=== PATIENT | female | born 1975 | race Hispanic/Latino ===

== ENCOUNTER 2017-09-01 23:04 | Emergency (ER) | payer SELFPAY ==
[2017-09-01 23:04] VITALS: BMI 29.4
[2017-09-01 23:36] VITALS: BP 124/83; RESP 20
--- NOTE | 2017-09-02 01:12 | C.PDOC ---
History Of Present Illness 41 year old female presents to the ED for evaluation of left-sided neck and shoulder pain which gradually developed over the past 10 days after she sustained a mechanical fall. Patient states her pain is localized and worsens with movement. She denies head injury, LOC, syncope, headache, dizziness, visual changes, focal deficits, CP< SOB, dyspnea, diaphoresis, palpitation, abd. pain, N/V, denies obvious deformity or weakness to B/L UEs and LEs. Time Seen by Provider: 09/01/17 23:21 Chief Complaint (Nursing): Upper Extremity Problem/Injury History Per: Patient History/Exam Limitations: no limitations Onset/Duration Of Symptoms: Gradual (10) Current Symptoms Are (Timing): Still Present Quality: "Pain" Exacerbating Factor(s): Movement Additional History Per: Patient Past Medical History Reviewed: Historical Data, Nursing Documentation, Vital Signs Vital Signs: Last Vital Signs Temp 98 F 09/02/17 01:45 Pulse 82 09/02/17 01:45 Resp 20 09/02/17 01:45 BP 124/83 09/01/17 23:33 Pulse Ox 97 09/07/17 21:39 - Medical History PMH: COPD Surgical History: Appendectomy Family History: States: Unknown Family Hx - Social History Hx Tobacco Use: No Hx Alcohol Use: No Hx Substance Use: No - Immunization History Hx Tetanus Toxoid Vaccination: No Hx Influenza Vaccination: No Hx Pneumococcal Vaccination: No Review Of Systems Musculoskeletal: Positive for: Neck Pain (left-sided), Shoulder Pain (left-sided ) Neurological: Negative for: Weakness, Numbness, Other (head injury, LOC, syncope ) Physical Exam - Physical Exam Appears: Well, Non-toxic, No Acute Distress Skin: Normal Color, Warm, Dry, No Rash Head: Normacephalic Eye(s): bilateral: PERRL Nose: No Flaring, No Discharge Oral Mucosa: Moist, No Drooling Throat: No Erythema, No Drooling Neck: Trachea Midline, No Midline Cervical Tenderness, No Step Off Deformity, Supple, Other (mod tenderness over superior aspect left shoulder extends down to Let periscapular area with mod muscle spasm. no palpable deformity, no skin changes.) Cardiovascular: Rhythm Regular Respiratory: Normal Breath Sounds Gastrointestinal/Abdominal: Normal Exam Back: Normal Inspection Extremity: Normal ROM ED Course And Treatment O2 Sat by Pulse Oximetry: 97 (on RA) Pulse Ox Interpretation: Normal - Other Rad C-SPINE X-Ray: Interpreted by Me, Viewed By Me Interpretation: (-) ACUTE FX OR SUBLUX SHOULDER LEFT X-Ray: Interpreted by Me, Viewed By Me Interpretation: (-) ACUTE FX OR DISLOCATION Progress Note: Cervical Spine AP/LAT XR and Left shoulder XR ordered and reviewed. Motrin PO and Valium PO administered. On reassessment, patient is resting comfortably, showing no signs of distress and is stable for discharge. Patient is advised to follow up with orthopedic care within a timely manner for further evaluation. Disposition Counseled Patient/Family Regarding: Studies Performed, Diagnosis, Need For Followup, Rx Given - Disposition Referrals: Elsy Patricio MD [Staff Provider] - Giovanni Nayak MD [Staff Provider] - Disposition: HOME/ ROUTINE Disposition Time: 01:02 Condition: STABLE Additional Instructions: TAKE MEDICATION PRESCRIBED FOLLOW UP WITH PMD, ORTHOPEDIST IN 2-3 DAYS FOR RE-EVALUATION AND FURTHER TREATMENT. RETURN TO ED IF ANY WORSENING OR NEW CHANGES. 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 - Scribe Statement The provider has reviewed the documentation as recorded by the Scribe (Mandy Mckinley) All medical record entries made by the Scribe were at my direction and personally dictated by me. I have reviewed the chart and agree that the record accurately reflects my personal performance of the history, physical exam, medical decision making, and the department course for this patient. I have also personally directed, reviewed, and agree with the discharge instructions and disposition.
[2017-09-02 01:46] VITALS: PULSE 82; TEMP 98
--- NOTE | 2017-09-02 08:35 | RAD ---
PROCEDURE: Cervical Spine Radiographs. HISTORY: Pain. COMPARISON: None. FINDINGS: BONES: Cervical spine straightening to mild reversal. No fracture. Dens Intact. DISC SPACES: Normal. SOFT TISSUES: Normal. No prevertebral soft tissue swelling. OTHER FINDINGS: Developmental variation C7 small cervical rib contours IMPRESSION: No fracture or subluxation
--- NOTE | 2017-09-02 08:37 | RAD ---
PROCEDURE: Radiographs of the Left Shoulder HISTORY: pain COMPARISON: No prior. FINDINGS: BONES: Normal. No fracture. JOINTS: Normal. Glenohumeral and acromioclavicular joints preserved. No osteoarthritis. SOFT TISSUES: Normal. OTHER FINDINGS: Developmental variation C7 small cervical rib contours IMPRESSION: Normal radiographs of the left shoulder.
[2017-09-07 21:31] VITALS: O2SAT 97
== END 2017-09-02 01:44 | disposition home or self-care (01) ==
LOC: C.ER 23:04
DX: M54.12 Radiculopathy, cervical region (principal); S16.1XXA Strain of muscle, fascia and tendon at neck level, initial encounter; W01.0XXA Fall on same level from slipping, tripping and stumbling without subsequent striking against object, initial encounter; Y92.009 Unspecified place in unspecified non-institutional (private) residence as the place of occurrence of the external cause

== ENCOUNTER 2017-12-30 01:50 | Emergency (ER) | payer SELFPAY ==
[2017-12-30 01:50] VITALS: BMI 29.4
[2017-12-30 02:03] VITALS: RESP 20
--- NOTE | 2017-12-30 03:00 | C.PDOC ---
History Of Present Illness 42 yo female come in for evaluation of " oral sores and sore throat gradually developed for past few days after had unprotected sex". Pt also reports, mild discomfort on urination. Otherwise, denies fever, chills, headache, dizziness, drooling, dysphagia, dyspnea, SOB, wheezing, abd. pain, V/D, vaginal discharges or irritation, hematuria. Ambulate to Ed for evaluation, not in any apparent distress. Time Seen by Provider: 12/30/17 01:54 Chief Complaint (Nursing): ENT Problem History Per: Patient Past Medical History Reviewed: Historical Data, Nursing Documentation, Vital Signs Vital Signs: Last Vital Signs Temp 98.8 F 12/30/17 04:17 Pulse 89 12/30/17 04:17 Resp 20 12/30/17 04:17 BP 120/77 12/30/17 04:17 Pulse Ox 99 12/30/17 04:17 - Medical History PMH: COPD Surgical History: Appendectomy Family History: States: Unknown Family Hx - Social History Hx Tobacco Use: No Hx Alcohol Use: No Hx Substance Use: No - Immunization History Hx Tetanus Toxoid Vaccination: No Hx Influenza Vaccination: No Hx Pneumococcal Vaccination: No Review Of Systems Except As Marked, All Systems Reviewed And Found Negative. Constitutional: Negative for: Fever, Chills ENT: Positive for: Nose Congestion, Throat Pain, Throat Swelling. Negative for : Ear Discharge, Nose Discharge Cardiovascular: Negative for: Chest Pain Respiratory: Negative for: Cough, Shortness of Breath, Wheezing Gastrointestinal: Negative for: Nausea, Vomiting, Abdominal Pain, Diarrhea Genitourinary: Positive for: Dysuria. Negative for: Frequency, Vaginal Discharge, Vaginal Bleeding Musculoskeletal: Negative for: Back Pain Skin: Negative for: Rash Neurological: Negative for: Weakness, Numbness Physical Exam - Physical Exam Appears: Well, Non-toxic, No Acute Distress Skin: Normal Color, Warm, Dry, No Rash Head: Normacephalic Eye(s): bilateral: PERRL Ear(s): Bilateral: Normal Nose: No Flaring, No Discharge Oral Mucosa: Moist, No Drooling, No Trismus Tongue: No Lesions Lips: No Lesions Gingiva: Normal Appearing Throat: Erythema (mild B/L), No Drooling Neck: Trachea Midline, Supple Cardiovascular: Rhythm Regular Respiratory: No Decreased Breath Sounds, No Accessory Muscle Use, No Stridor, No Wheezing Gastrointestinal/Abdominal: Soft, Tenderness (mild suprapubic), No Distention, No Guarding, No Rebound Back: No CVA Tenderness Extremity: Normal ROM, No Deformity, No Swelling Neurological/Psych: Oriented x3, Normal Speech ED Course And Treatment - Laboratory Results Urine POC: Negative O2 Sat by Pulse Oximetry: 100 Pulse Ox Interpretation: Normal Progress Note: On re-evlauation, pt is afebrile, hemodynamicaly stable. NOn- toxic. Tolerate Po well in ED. PusleOx 100% RA. ENT: mild pharyngeal erythema , no lesions, uvula midline, no edema. Neck: Supple, (-) meningeal sign, (-) JVD, (-) carotid bruits B/L. Lungs: CTA B/L, BS equal B/L. CVS: (+)S1S2, reg. Abd: benign, (-) guaridng, (-) rebound. back: (-) CVA tenderness. Neurologicaly intact. UA results review (-). Has clinical findings c/w pharyngitis, dysuria, r/o STD. result review with pt. Ref. to Follow up with PMD, SUPPLY CHAIN DEVELOPMENT MANAGER, ENT in 2-3 days for re-eval. return to Ed if any worsening or new changes. Disposition Counseled Patient/Family Regarding: Studies Performed, Diagnosis, Need For Followup, Rx Given - Disposition Referrals: Elsy Patricio MD [Staff Provider] - Disposition: HOME/ ROUTINE Disposition Time: 03:00 Condition: STABLE Additional Instructions: Take medication as prescribed Follow up with PMD, ENT, SUPPLY CHAIN DEVELOPMENT MANAGER in 2-3 days for re-evaluation. return to ED if any worsening or new changes. Prescriptions: Ciprofloxacin [Cipro] 1 tab PO BID #14 tab Instructions: Sore Throat, Adult (DC), Dysuria, Adult (DC) Forms: [employer] (Nauruan) - Clinical Impression Clinical Impression: Pharyngitis, Dysuria
[2017-12-30 03:37] LABS: SQUAMOUS EPITHIAL 1 /hpf (0-5); URINE BILIRUBIN NEGATIVE (NEGATIVE); URINE BLOOD NEGATIVE (NEGATIVE); URINE CLARITY Clear (Clear); URINE COLOR Yellow (YELLOW); URINE GLUCOSE (UA) NORMAL (Normal); URINE LEUKOCYTE ESTERASE NEG Leu/uL (Negative); URINE PROTEIN NEGATIVE (NEGATIVE); URINE UROBILINOGEN NORMAL mg/dL (0.2-1.0)
[2017-12-30 04:18] VITALS: BP 120/77; PULSE 89; TEMP 98.8
[2017-12-30 04:40] VITALS: O2SAT 100
== END 2017-12-30 04:18 | disposition home or self-care (01) ==
LOC: C.ER 01:50
DX: J02.9 Acute pharyngitis, unspecified (principal); R30.0 Dysuria; F17.210 Nicotine dependence, cigarettes, uncomplicated

== ENCOUNTER 2018-04-28 17:00 | Emergency (ER) | payer SELFPAY ==
[2018-04-28 17:01] VITALS: BMI 29.4
[2018-04-28 17:26] VITALS: RESP 18
--- NOTE | 2018-04-28 17:31 | C.PDOC ---
History Of Present Illness 42 y/o female presents to the ER complaining of tingling to her left arm, right hand, and left big toe which has been present for the past 2 to 3 days. Patient states that the tingling increased today prompting her visit to the ER. Denies having headache, changes in vision, weakness or changes in speech. No other FND. No trauma or falls. Time Seen by Provider: 04/28/18 17:30 Chief Complaint (Nursing): Weakness/Neurological Deficit History Per: Patient History/Exam Limitations: no limitations Onset/Duration Of Symptoms: Days Current Symptoms Are (Timing): Still Present Severity: Moderate Past Medical History Reviewed: Historical Data, Nursing Documentation, Vital Signs Vital Signs: Last Vital Signs Temp 98.5 F 04/28/18 20:42 Pulse 67 04/28/18 22:02 Resp 18 04/28/18 22:02 BP 119/74 04/28/18 22:02 Pulse Ox 100 04/28/18 22:02 - Medical History PMH: COPD Surgical History: Appendectomy Family History: States: No Known Family Hx - Social History Hx Tobacco Use: No Hx Alcohol Use: No Hx Substance Use: No - Immunization History Hx Tetanus Toxoid Vaccination: No Hx Influenza Vaccination: No Hx Pneumococcal Vaccination: No Review Of Systems Except As Marked, All Systems Reviewed And Found Negative. Constitutional: Negative for: Fever, Chills Neurological: Positive for: Other (tingling to left arm, right hand, and left big toe). Negative for: Weakness Physical Exam - Physical Exam Appears: Non-toxic, No Acute Distress Skin: Normal Color, Warm, Dry Head: Atraumatic, Normacephalic Eye(s): bilateral: Normal Inspection Nose: Normal Oral Mucosa: Moist Neck: Supple Chest: Symmetrical Cardiovascular: Rhythm Regular Respiratory: Normal Breath Sounds, No Rales, No Rhonchi, No Wheezing Gastrointestinal/Abdominal: Normal Exam, Soft, No Tenderness, No Guarding, No Rebound Extremity: Normal ROM, No Tenderness Neurological/Psych: Oriented x3, Normal Speech, Normal Cognition, Normal Cranial Nerves, No Cerebellar Signs, Normal Motor, Normal Sensation, Normal Reflexes Gait: Steady Other Neurological Findings: No Facial Palsy, No Forehead Sparing Extremity: Right: No Drift, Left: No Drift, Upper: No Drift, Lower: No Drift ED Course And Treatment - Laboratory Results Result Diagrams: 04/28/18 19:22 09/06/18 19:22 O2 Sat by Pulse Oximetry: 99 (RA) Pulse Ox Interpretation: Normal Medical Decision Making Medical Decision Making: Well appearing 42 yr old female p/w parathesias in non-neurological stroke like pattern (b/l hands without cape distribution and big toe) Normal exam. No appreciable numbness on my exam. No trauma or pain. Plan: --Labs --UA --CT- Head --POC Test Updates: Ct unremarkable On re-evaluation, patient states that her symptoms have resolved and she is ready for discharge. Given patient has non neurological associated strije pattern, patient will be discharged and instructed to follow up as an outpatient with neuro. Disposition - Disposition Referrals: Hailey Viera MD [Staff Provider] - [facility] [Outside] Disposition: HOME/ ROUTINE Disposition Time: 21:00 Condition: GOOD Additional Instructions: PHOENIX VÁSQUEZ, thank you for letting us take care of you today. Your provider was Murphy Rtoh and you were treated for NUMBNESS IN HANDS/FACE. The emergency medical care you received today was directed at your acute symptoms. If you were prescribed any medication, please fill it and take as directed. It may take several days for your symptoms to resolve. Return to the Emergency Department if your symptoms worsen, do not improve, or if you have any other problems. Please contact your doctor or call one of the physicians/clinics you have been referred to that are listed on the Patient Visit Information form that is included in your discharge packet. Bring any paperwork you were given at discharge with you along with any medications you are taking to your follow up visit. Our treatment cannot replace ongoing medical care by a primary care provider outside of the emergency department. Thank you for allowing the [facility] team to be part of your care today. If you had an X-Ray or CT scan: A Radiologist will review the ED reading if any change in treatment is needed we will contact you. If you had a blood, urine, or wound culture: It will take several days for the results, if any change in treatment is needed we will contact you. If you had an STI test: It will take 48 hours for the results. Please call after 1 week if you have not heard back. Instructions: Paresthesias (DC) Forms: [employer] (Chinese) - Clinical Impression Clinical Impression: Hand paresthesia - Scribe Statement The provider has reviewed the documentation as recorded by the Rikiibe Brook Mcgee Provider Attestation: All medical record entries made by the Scribe were at my direction and personally dictated by me. I have reviewed the chart and agree that the record accurately reflects my personal performance of the history, physical exam, medical decision making, and the department course for this patient. I have also personally directed, reviewed, and agree with the discharge instructions and disposition.
[2018-04-28 18:17] LABS: SQUAMOUS EPITHIAL 51 /hpf (0-5); URINE BACTERIA FEW (<OCC); URINE BILIRUBIN NEGATIVE (NEGATIVE); URINE BLOOD NEGATIVE (NEGATIVE); URINE CLARITY Hazy (Clear); URINE GLUCOSE (UA) NORMAL (Normal); URINE LEUKOCYTE ESTERASE TRACE Leu/uL (Negative); URINE PROTEIN 1+ mg/dL (NEGATIVE)
[2018-04-28 18:18] LABS: URINE COLOR YELLOW (YELLOW)
[2018-04-28 18:50] LABS: BARBITURATES, UR NEGATIVE (NEGATIVE); BENZODIAZEPINES, UR NEGATIVE (NEGATIVE); OPIATES, UR NEGATIVE (NEGATIVE); PHENCYCLIDINE, UR NEGATIVE (NEGATIVE)
[2018-04-28 19:24] LABS: HEMOGLOBIN 15.1 g/dL (11.0-16.0); MEAN CELL VOLUME 88.7 fL (81.0-99.0); MEAN CORPUSCULAR HEMOGLOBIN 29.5 pg (27.0-31.0); MEAN CORPUSCULAR HGB CONC 33.2 g/dL (33.0-37.0); MEAN PLATELET VOLUME 10.1 fL (7.2-11.7); RBC 5.14 Mil/uL (3.80-5.20); RED CELL DISTRIBUTION WIDTH 13.2 % (11.5-14.5); WHITE BLOOD COUNT 4.5 K/uL (4.8-10.8)
[2018-04-28 19:37] LABS: VENOUS BLOOD GAS BASE EXCESS -0.5 mmol/L (0.0-2.0); VENOUS BLOOD GAS PCO2 39 mmHg (40-60); VENOUS BLOOD GAS PO2 52 mm/Hg (30-55)
[2018-04-28 19:38] LABS: ALB/GLOB RATIO 1.3 (1.0-2.1); ALBUMIN 4.3 g/dL (3.5-5.0); ALT/SGPT 30 U/L (9-52); AST/SGOT 14 U/L (14-36); BLOOD UREA NITROGEN 16 mg/dL (7-17); CALCIUM 9.3 mg/dl (8.6-10.4); GFR NON-AFRICAN AMERICAN > 60
[2018-04-28 20:42] VITALS: TEMP 98.5
[2018-04-28 22:08] VITALS: BP 119/74; PULSE 67
[2018-04-29 01:10] VITALS: O2SAT 99
--- NOTE | 2018-04-29 07:15 | CT ---
Date of service: 04/28/2018 PROCEDURE: CT HEAD WITHOUT CONTRAST. HISTORY: parathesias COMPARISON: None available. TECHNIQUE: Axial computed tomography images were obtained through the head/brain without intravenous contrast. Radiation dose: Total exam DLP = 1000 mGy-cm. This CT exam was performed using one or more of the following dose reduction techniques: Automated exposure control, adjustment of the mA and/or kV according to patient size, and/or use of iterative reconstruction technique. FINDINGS: HEMORRHAGE: No intracranial hemorrhage. BRAIN: No mass effect or edema. No atrophy or chronic microvascular ischemic changes. VENTRICLES: Unremarkable. No hydrocephalus. CALVARIUM: Unremarkable. PARANASAL SINUSES: Ethmoid sinus mucosal thickening. MASTOID AIR CELLS: Unremarkable as visualized. No inflammatory changes. OTHER FINDINGS: None. IMPRESSION: Ethmoid sinus mucosal thickening. If symptoms persists, consider correlation with MRI. These findings were preliminarily reported at 7:52 p.m. on 04/28/[address] Chhaya Keys from [facility].
--- NOTE | 2018-04-29 11:04 | CARD ---
APPROVED REPORT Date of service: 04/28/2018 EKG Measurement Heart [id number] <Conclusion> Normal sinus rhythm Normal ECG
== END 2018-04-28 22:09 | disposition home or self-care (01) ==
LOC: C.ER 17:00
DX: R20.2 Paresthesia of skin (principal)
CPT/HCPCS: 70450; 80053; 81001; 82803; 83735; 84443; 85027; 87086; 93005; 99285; G0480

== ENCOUNTER 2018-11-01 12:22 | Inpatient (IN) | payer SELFPAY ==
[2018-11-01 12:22] VITALS: BMI 29.4
--- NOTE | 2018-11-01 14:12 | C.PDOC ---
History Of Present Illness 42 year old female, whose past medical history includes COPD and cardiac surgery (as a ), presents to the ED for evaluation of facial pain, ear pain, cough, left back pain and throat pain which has been ongoing for 1.5 weeks. Patient reports possible subjective fever. She also reports intermittent left anterior chest wall pain, which lasted all day yesterday and radiated into her left arm. She denies chest pain currently, but has left lung pain . Patient complains of lung pain while pointing to her left back, which she states has prompted this visit. Patient states she has not been using nebulizer, because she does not have one at home. She has not been evaluated by her PMD for these symptoms. Patient denies nausea, vomiting, dizziness. Time Seen by Provider: 11/01/18 13:26 Chief Complaint (Nursing): Cough, Cold, Congestion History Per: Patient History/Exam Limitations: no limitations Onset/Duration Of Symptoms: Days Current Symptoms Are (Timing): Still Present Additional History Per: Patient Past Medical History Reviewed: Historical Data, Nursing Documentation, Vital Signs Vital Signs: Last Vital Signs Temp 98.7 F 11/01/18 12:37 Pulse 98 H 11/01/18 12:37 Resp 18 11/01/18 12:37 BP 117/83 11/01/18 12:37 Pulse Ox 100 11/01/18 12:37 - Medical History PMH: COPD Surgical History: Appendectomy Family History: States: Unknown Family Hx - Social History Hx Tobacco Use: Yes Hx Alcohol Use: Yes Hx Substance Use: No - Immunization History Hx Tetanus Toxoid Vaccination: No Hx Influenza Vaccination: No Hx Pneumococcal Vaccination: No Review Of Systems Constitutional: Positive for: Fever (subjective ) ENT: Positive for: Ear Pain, Mouth Pain, Other (facial pain ) Cardiovascular: Positive for: Chest Pain (left, anterior ) Respiratory: Positive for: Cough Gastrointestinal: Negative for: Nausea, Vomiting Neurological: Negative for: Dizziness Physical Exam - Physical Exam Appears: Non-toxic, No Acute Distress Skin: Normal Color, Warm, Dry, Other (diagonal scar on left back ) Head: Atraumatic, Normacephalic Eye(s): bilateral: Normal Inspection Oral Mucosa: Moist Gingiva: Other (lone vesicle to left upper gum) Throat: Normal, No Erythema, No Exudate Neck: Supple Chest: Symmetrical, No Deformity, No Tenderness Cardiovascular: Rhythm Regular, No Murmur Respiratory: Normal Breath Sounds, No Rales, No Rhonchi, No Wheezing Extremity: Normal ROM, No Tenderness, Capillary Refill (less than 2 seconds ) Neurological/Psych: Normal Speech, Normal Cognition ED Course And Treatment - Laboratory Results Result Diagrams: 11/02/18 11:37 11/02/18 12:28 ECG: Interpreted By Me, Viewed By Me ECG Rhythm: Sinus Rhythm Rate From EC O2 Sat by Pulse Oximetry: 100 - Other Rad CXR X-Ray: Viewed By Me, Read By Radiologist Interpretation: Date of service: 11/01/2018. HISTORY: COPD, left lung pain. COMPARISON: Comparison made with prior study 04/24/2015. TECHNIQUE: Chest PA and lateral. FINDINGS: LUNGS: No active pulmonary disease. PLEURA: No significant pleural effusion identified. No pneumothorax apparent. CARDIOVASCULAR: No aortic atherosclerotic calcification present. Normal cardiac size. No pulmonary vascular congestion. OSSEOUS STRUCTURES: No si gnificant abnormalities. VISUALIZED UPPER ABDOMEN: Normal. OTHER FINDINGS: None. IMPRESSION: No active disease. Medical Decision Making Medical Decision Making: Progress: Bloodwork, urinalysis, CXR, EKG ordered and reviewed. [address] Patricio; pt with mu;ltiple risk risk factors for cardiac chest pain, recent cardiac sounding chest pain with left back pain today; will admit to his service to telemetry. 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 - Scribe Statement The provider has reviewed the documentation as recorded by the Scribe (Mandy Mckinley) All medical record entries made by the Scribe were at my direction and personally dictated by me. I have reviewed the chart and agree that the record accurately reflects my personal performance of the history, physical exam, medical decision making, and the department course for this patient. I have also personally directed, reviewed, and agree with the discharge instructions and disposition.
[2018-11-01 14:35] LABS: BASO # 0.1 K/uL (0.0-0.2); BASO % 1.3 % (0.0-2.0); EOS # 0.4 K/uL (0.0-0.7); EOS % 8.4 % (0.0-4.0); HEMOGLOBIN 14.6 g/dL (11.0-16.0); LYMPH # 1.3 K/uL (1.0-4.3); LYMPH % 29.1 % (20.0-40.0); MEAN CELL VOLUME 90.1 fL (81.0-99.0); MEAN CORPUSCULAR HEMOGLOBIN 29.8 pg (27.0-31.0); MEAN CORPUSCULAR HGB CONC 33.1 g/dL (33.0-37.0); MONO # 0.6 K/uL (0.0-0.8); MONO % 12.9 % (0.0-10.0); NEUT # 2.2 K/uL (1.8-7.0); NEUT % 48.3 % (50.0-75.0); NRBC % 0.1 % (0.0-2.0); RBC 4.9 Mil/uL (3.80-5.20); RED CELL DISTRIBUTION WIDTH 12.9 % (11.5-14.5); WHITE BLOOD COUNT 4.5 K/uL (4.8-10.8)
[2018-11-01 14:40] LABS: SQUAMOUS EPITHIAL 13 /hpf (0-5); URINE BILIRUBIN NEGATIVE (NEGATIVE); URINE BLOOD NEGATIVE (NEGATIVE); URINE CLARITY Hazy (Clear); URINE COLOR Yellow (YELLOW); URINE GLUCOSE (UA) NORMAL (Normal); URINE LEUKOCYTE ESTERASE NEG Leu/uL (Negative); URINE PROTEIN NEGATIVE (NEGATIVE); URINE UROBILINOGEN NORMAL mg/dL (0.2-1.0)
[2018-11-01 14:51] LABS: ALB/GLOB RATIO 1.3 (1.0-2.1); ALBUMIN 4.3 g/dL (3.5-5.0); ALT/SGPT 22 U/L (9-52); AST/SGOT 21 U/L (14-36); BLOOD UREA NITROGEN 10 mg/dL (7-17); CALCIUM 9.1 mg/dl (8.6-10.4); GFR NON-AFRICAN AMERICAN > 60
--- NOTE | 2018-11-01 16:40 | RAD ---
Date of service: 11/01/2018 HISTORY: COPD, left lung pain COMPARISON: Comparison made with prior study 04/24/2015. TECHNIQUE: Chest PA and lateral FINDINGS: LUNGS: No active pulmonary disease. PLEURA: No significant pleural effusion identified. No pneumothorax apparent. CARDIOVASCULAR: No aortic atherosclerotic calcification present. Normal cardiac size. No pulmonary vascular congestion. OSSEOUS STRUCTURES: No significant abnormalities. VISUALIZED UPPER ABDOMEN: Normal. OTHER FINDINGS: None. IMPRESSION: No active disease.
[2018-11-01 18:11] VITALS: RESP 20
[2018-11-01] MEDS ORDERED: Moxifloxacin IV 400mg/250ml NS 400 MG/250 ML BAG IVPB SCH (19:00)
[2018-11-01] MEDS: Albuterol-Ipratrop 3 mg / 0.5 (3 ml) UD INH SCH (19:26)
[2018-11-01] MEDS: MethylPREDNISolone 40 mg Vial IVP SCH (19:29)
[2018-11-02] MEDS: Albuterol-Ipratrop 3 mg / 0.5 (3 ml) UD INH SCH ×4 (00:15→11:15)
[2018-11-02] MEDS: MethylPREDNISolone 40 mg Vial IVP SCH ×3 (00:15→11:53)
[2018-11-02 08:34] VITALS: BP 101/61; PULSE 101; TEMP 98.1
--- NOTE | 2018-11-02 11:04 | CP.PCM.PN ---
Subjective - Date & Time of Evaluation Date of Evaluation: 11/02/18 Time of Evaluation: 13:12 - Subjective Subjective: Medicine Note for Dr. Patricio This is a 42 year old female with PMHx of COPD and tobacco use disorder who presents for chest pain x 1.5 weeks. Patient reported having bronchitis for the past 1.5 weeks with a productive cough. Denied any associated fever, chills, or sick contacts. Patient had a stress test [place] [address] Roa which revealed no ischemia present during that time. Patient reports she feels chest pain along the left side of her chest which gets worse with coughing. ROS unremarkable otherwise. Objective - Vital Signs/Intake and Output Vital Signs (last 24 hours): Temp Pulse Resp BP Pulse Ox 98.1 F 101 H 20 101/61 95 11/02/18 08:33 11/02/18 08:33 11/02/18 08:33 11/02/18 08:33 11/02/18 08:33 - Medications Medications: Current Medications Albuterol/Ipratropium (Duoneb 3 Mg/0.5 Mg (3 Ml) Ud) 3 ml INH RQ4 [facility] Last Admin: 11/02/18 07:55 Dose: 3 ml Moxifloxacin HCl (Avelox Iv 400mg/250ml Ns) 400 mg in 250 mls @ 167 mls/hr IVPB Q24H [facility]; Protocol Last Admin: 11/01/18 19:37 Dose: 167 mls/hr Methylprednisolone (Solu-Medrol) 40 mg IVP Q6 [facility] Last Admin: 11/02/18 06:45 Dose: 40 mg - Labs Labs: 11/01/18 14:32 11/01/18 14:32 - Constitutional Appears: Well, Non-toxic, No Acute Distress - Head Exam Head Exam: NORMAL INSPECTION, NORMOCEPHALIC - Eye Exam Eye Exam: EOMI, Normal appearance, PERRL Pupil Exam: NORMAL ACCOMODATION - ENT Exam ENT Exam: Mucous Membranes Moist - Neck Exam Neck Exam: absent: Lymphadenopathy, Thyromegaly - Respiratory Exam Respiratory Exam: Decreased Breath Sounds, Wheezes - Cardiovascular Exam Cardiovascular Exam: REGULAR RHYTHM, +S1, +S2 - GI/Abdominal Exam GI & Abdominal Exam: Soft, Normal Bowel Sounds. absent: Distended, Tenderness - Extremities Exam Extremities Exam: Normal Inspection. absent: Pedal Edema, Tenderness - Neurological Exam Neurological Exam: Alert, Awake, Oriented x3 - Psychiatric Exam Psychiatric exam: Normal Affect, Normal Mood - Skin Skin Exam: Dry, Intact, Normal Color, Warm Assessment and Plan - Assessment and Plan (Free Text) Plan: Chest Pain r/o ACS - EKG - NSR - ROMIs negative - Stress test 2014 - no ischemia noted COPD - Patient discharged with albuterol and spirivia - Avelox x 4 days Tobacco Use Disorder - Smoking Cessation encouraged Disposition: Patient is medically stable for discharge. Patient is to follow up with Dr. Patricio within [address] Patricio, Mary Major DO, PGY2
[2018-11-02 12:05] LABS: HEMOGLOBIN 13.7 g/dL (11.0-16.0); LYMPH # 0.4 K/uL (1.0-4.3); LYMPH % 4.6 % (20.0-40.0); MEAN CELL VOLUME 90.5 fL (81.0-99.0); MEAN CORPUSCULAR HEMOGLOBIN 30.1 pg (27.0-31.0); MEAN CORPUSCULAR HGB CONC 33.2 g/dL (33.0-37.0); MEAN PLATELET VOLUME 10.7 fL (7.2-11.7); MONO # 0.1 K/uL (0.0-0.8); MONO % 1.5 % (0.0-10.0); NEUT # 7.4 K/uL (1.8-7.0); NEUT % 93.9 % (50.0-75.0); PLATELET COUNT 245 K/uL (130-400); RBC 4.56 Mil/uL (3.80-5.20); RED CELL DISTRIBUTION WIDTH 12.8 % (11.5-14.5)
[2018-11-02 12:07] LABS: WHITE BLOOD COUNT 7.9 K/uL (4.8-10.8)
[2018-11-02 12:33] LABS: BANDS 2 % (0-2); LYMPHOCYTE 4 % (20-40); MONOCYTE 1 % (0-10); NEUTROPHIL 93 % (50-75); PLATELET ESTIMATE NORMAL (NORMAL); TOTAL CELLS COUNTED 100
--- NOTE | 2018-11-02 12:38 | CARD ---
APPROVED REPORT Date of service: 11/01/2018 EKG Measurement Heart [id number] <Conclusion> Normal sinus rhythm Low voltage QRS Borderline ECG
[2018-11-02 12:53] LABS: ALB/GLOB RATIO 1.3 (1.0-2.1); ALT/SGPT 13 U/L (9-52); AST/SGOT 19 U/L (14-36); BLOOD UREA NITROGEN 12 mg/dL (7-17); CALCIUM 9.7 mg/dl (8.6-10.4); GFR NON-AFRICAN AMERICAN > 60
[2018-11-02 12:58] LABS: CK-MB 0.92 ng/mL (0.0-3.38)
[2018-11-03 18:22] VITALS: O2SAT 100
== END 2018-11-02 13:33 | disposition home or self-care (01) | DRG 203 ==
LOC: C.ER 12:22 → C.9E 16:04 → C.6T 16:52
PROVIDERS: ADMIT Internal Medicine Pulmonary Disease; ATTEND Internal Medicine Pulmonary Disease
DX: J40 Bronchitis, not specified as acute or chronic (principal); R07.89 Other chest pain; J44.9 Chronic obstructive pulmonary disease, unspecified; F17.210 Nicotine dependence, cigarettes, uncomplicated